=== PATIENT | female | born 1985 | race Caucasian/White ===

== ENCOUNTER 2019-02-24 13:23 | Emergency (ER) | payer BC, MEDICAID ==
--- NOTE | 2019-02-24 13:51 | ER Document Report ---
ED Medical Screen (RME) - General Chief Complaint: Abdominal Pain Stated Complaint: WEAKNESS Time Seen by Provider: 02/24/19 13:44 Mode of Arrival: Ambulatory Information source: Patient Notes: 33-year-old female presented to ED for pinkish-brown discharge from bilateral sides on her pelvic area where she had a tubal ligation reversed on February 04. She states that she had not had any drainage until she woke up this morning with her close and bed linens soaked. She states she felt like she had a low-grade fever yesterday. Past medical history is high blood pressure hypothyroidism she had a bilateral tubal ligation and reversal and tonsillectomy. She patient does not drink smoke or use any drugs. She is having some discomfort but refused Tylenol or Motrin at this time. Blood work urine and ultrasound will be completed and she will be seen by another provider. I have greeted and performed a rapid initial assessment of this patient. A comprehensive ED assessment and evaluation of the patient, analysis of test results and completion of medical decision making process will be conducted by an additional ED providers. Dictation of this chart was performed using voice recognition software; therefore, there may be some unintended grammatical errors. TRAVEL OUTSIDE OF THE [place] IN LAST 30 DAYS: No - Related Data Allergies/Adverse Reactions: No Known Allergies Allergy (Unverified 02/24/19 13:25) Physical Exam - Vital signs Vitals: Temp Pulse Resp BP Pulse Ox 99.8 F 85 18 135/96 H 100 02/24/19 13:29 02/24/19 13:29 02/24/19 13:29 02/24/19 13:29 02/24/19 13:29 Course - Vital Signs Vital signs: Temp Pulse Resp BP Pulse Ox 99.8 F 85 18 135/96 H 100 02/24/19 13:29 02/24/19 13:29 02/24/19 13:29 02/24/19 13:29 02/24/19 13:29
[2019-02-24 14:33] LABS: ABSOLUTE EOSINOPHILS # (AUTO) 0.1 10^3/uL (0.0-0.6); ABSOLUTE MONOCYTES (AUTO) 0.7 10^3/uL (0.1-1.4); ABSOLUTE NEUT (AUTO) 4.6 10^3/uL (1.7-8.2); BASOPHILS % (AUTO) 0.7 % (0-2); EOSINOPHILS % (AUTO) 1.1 % (0-6); HEMATOCRIT 32.4 % (36.0-47.0); HEMOGLOBIN 10.9 g/dL (12.0-15.5); LYMPHOCYTES % (AUTO) 15.6 % (13-45); MEAN CORPUSCULAR HEMOGLOBIN 30.1 pg (27.0-33.4); MEAN CORPUSCULAR HGB CONC 33.6 g/dL (32.0-36.0); MEAN CORPUSCULAR VOLUME 90 fl (80-97); MONOCYTES % (AUTO) 10.2 % (3-13); PLATELET COUNT 524 10^3/uL (150-450); RED BLOOD COUNT 3.62 10^6/uL (3.72-5.28); RED CELL DISTRIBUTION WIDTH 14.1 % (11.5-14.0); SEGMENTED NEUTROPHILS % (AUTO) 72.4 % (42-78); TOTAL CELLS COUNTED % (AUTO) 100 %; WHITE BLOOD COUNT 6.4 10^3/uL (4.0-10.5)
[2019-02-24 14:34] LABS: APPEARANCE,URINE SLIGHTLY-CLOUDY; BILIRUBIN,URINE NEGATIVE (NEGATIVE); COLOR,URINE YELLOW; GLUCOSE, URINE NEGATIVE (NEGATIVE); KETONES,URINE NEGATIVE (NEGATIVE); LEUKOCYTE ESTERASE,URINE NEGATIVE (NEGATIVE); NITRITE,URINE NEGATIVE (NEGATIVE); PROTEIN,URINE NEGATIVE (NEGATIVE); URINE SPECIFIC GRAVITY 1.011; UROBILINOGEN,URINE NEGATIVE mg/dL (<2.0)
[2019-02-24 14:51] LABS: ALANINE AMINOTRANSFERASE 28 U/L (9-52); ALBUMIN 3.8 g/dL (3.5-5.0); ALKALINE PHOSPHATASE 87 U/L (38-126); ANION GAP 8 (5-19); ASPARTATE AMINO TRANSFERASE 16 U/L (14-36); BILIRUBIN,DIRECT 0.2 mg/dL (0.0-0.4); BILIRUBIN,TOTAL 0.8 mg/dL (0.2-1.3); BLOOD UREA NITROGEN 9 mg/dL (7-20); CALCIUM 9.4 mg/dL (8.4-10.2); CARBON DIOXIDE 31 mmol/L (22-30); CHLORIDE 99 mmol/L (98-107); GLUCOSE 91 mg/dL (75-110); POTASSIUM 4.3 mmol/L (3.6-5.0); SODIUM 137.6 mmol/L (137-145); TOTAL PROTEIN 6.9 g/dL (6.3-8.2)
--- NOTE | 2019-02-24 17:13 | ER Document Report ---
ED General - General Chief Complaint: Abdominal Pain Stated Complaint: WEAKNESS Time Seen by Provider: 02/24/19 13:44 Mode of Arrival: Ambulatory Information source: Patient Notes: Patient presents emergency department with complaints of leaking from her BTL reversal site. Reports she had the surgery done February 04 in [facility]. She returned there last week for recheck. Everything was good but this morning she woke up with her pajama pants wet. Reports she felt a little warm yesterday. No other complaints such as fever vomiting diarrhea. TRAVEL OUTSIDE OF THE [place] IN LAST 30 DAYS: No - HPI Onset: This morning Severity: Moderate Pain Level: 3 Associated symptoms: None Exacerbated by: Movement Relieved by: Denies Similar symptoms previously: No Recently seen / treated by doctor: No - Related Data Allergies/Adverse Reactions: No Known Allergies Allergy (Unverified 02/24/19 13:25) Past Medical History - General Information source: Patient - Social History Smoking Status: Never Smoker Chew tobacco use (# tins/day): No Frequency of alcohol use: None Drug Abuse: None Lives with: Family Family History: None Patient has suicidal ideation: No Patient has homicidal ideation: No - Past Medical History Cardiac Medical History: Reports: Hx Hypertension Renal/ Medical History: Denies: Hx Peritoneal Dialysis Past Surgical History: Reports: Hx Tonsillectomy, Hx Tubal Ligation Review of Systems - Review of Systems Notes: Review HPI for review of systems., All other systems negative Physical Exam - Vital signs Vitals: Temp Pulse Resp BP Pulse Ox 99.8 F 85 18 135/96 H 100 02/24/19 13:29 02/24/19 13:29 02/24/19 13:29 02/24/19 13:29 02/24/19 13:29 - Notes Notes: PHYSICAL EXAMINATION: GENERAL: Well-appearing and in no acute distress HEAD: Atraumatic, normocephalic. EYES: Pupils equal round and reactive to light, extraocular movements intact, sclera anicteric, conjunctiva are normal. ENT: nares patent, oropharynx clear without exudates. Moist mucous membranes. NECK: Normal range of motion, supple without lymphadenopathy LUNGS: CTAB and equal. No wheezes rales or rhonchi. HEART: Regular rate and rhythm without murmurs ABDOMEN: Soft, no tenderness. No guarding, no rebound EXTREMITIES: Normal range of motion, no pitting edema. No cyanosis. NEUROLOGICAL: Cranial nerves grossly intact. Normal sensory/motor exams. PSYCH: Normal mood, normal affect. SKIN: Warm, Dry, normal turgor, no rashes or lesions noted Course - Vital Signs Vital signs: Temp Pulse Resp BP Pulse Ox 99.8 F 85 18 135/96 H 100 02/24/19 13:29 02/24/19 13:29 02/24/19 13:29 02/24/19 13:29 02/24/19 13:29 - Laboratory Result Diagrams: 02/24/19 14:03 02/24/19 14:03 Laboratory results interpreted by me: 02/24/19 02/24/19 14:03 14:03 RBC 3.62 L Hgb 10.9 L Hct 32.4 L RDW 14.1 H Plt Count 524 H Carbon Dioxide 31 H
--- NOTE | 2019-02-24 18:33 | RADIOLOGY REPORT (SQ) ---
EXAM DESCRIPTION: U/S NON-OB PELVIS LTD W/O DOP COMPLETED DATE/TIME: 02/24/2019 6:01 pm REASON FOR STUDY: Wound leakage, tubal ligation reversal COMPARISON: None. TECHNIQUE: Dynamic and static grayscale images acquired of the localized site of clinical concern an d recorded on PACS. Additional selected color Doppler and spectral images recorded. SITE OF CONCERN: Incision site in the soft tissues of the pelvis. LIMITATIONS: None. FINDINGS: Heterogenous loculated fluid collection in the soft tissues near the incision site in the left pelvic region. IMPRESSION: HETEROGENOUS LOCULATED FLUID COLLECTION NEAR THE INCISION SITE IN THE LEFT PELVIC REGION . MAY BE POSTOPERATIVE SEROMA ALTHOUGH INFECTIOUS ETIOLOGY CANNOT BE EXCLUDED. CT WITH CONTRAST MAY BE HELPFUL TO FURTHER EVALUATE THIS FINDING AND DETERMINE RELATIONSHIP TO OTHER PELVIC STRUCTURES. TECHNICAL DOCUMENTATION: JOB ID: [id number] [employer]- All Rights Reserved Reading location - IP/workstation name: [email or web address]
--- NOTE | 2019-02-24 19:17 | ER Document Report ---
ED Medical Screen (RME) - General Chief Complaint: Abdominal Pain Stated Complaint: WEAKNESS Time Seen by Provider: 02/24/19 13:44 Primary Care Provider: LIANNE SCHRADER NP [Primary Care Provider] - Follow up as needed Mode of Arrival: Ambulatory Information source: Patient Notes: Patient presents emergency department with complaints of leaking from her BTL reversal site. Reports she had the surgery done February 04 in [facility]. She returned there last week for recheck. Everything was good but this morning she woke up with her pajama pants wet. Reports she felt a little warm yesterday. No other complaints such as fever vomiting diarrhea. Abd wall is warm, +erythema TRAVEL OUTSIDE OF THE [place] IN LAST 30 DAYS: No - Related Data Allergies/Adverse Reactions: No Known Allergies Allergy (Unverified 02/24/19 13:25) Past Medical History - Social History Chew tobacco use (# tins/day): No Frequency of alcohol use: None Drug Abuse: None - Past Medical History Cardiac Medical History: Reports: Hx Hypertension Renal/ Medical History: Denies: Hx Peritoneal Dialysis Past Surgical History: Reports: Hx Tonsillectomy, Hx Tubal Ligation Physical Exam - Vital signs Vitals: Temp Pulse Resp BP Pulse Ox 99.8 F 85 18 135/96 H 100 02/24/19 13:29 02/24/19 13:29 02/24/19 13:29 02/24/19 13:29 02/24/19 13:29 Course - Vital Signs Vital signs: Temp Pulse Resp BP Pulse Ox 99.8 F 85 18 135/96 H 100 02/24/19 13:29 02/24/19 13:29 02/24/19 13:29 02/24/19 13:29 02/24/19 13:29 - Laboratory Result Diagrams: 02/24/19 14:03 02/24/19 14:03 Laboratory results interpreted by me: 02/24/19 02/24/19 14:03 14:03 RBC 3.62 L Hgb 10.9 L Hct 32.4 L RDW 14.1 H Plt Count 524 H Carbon Dioxide 31 H Doctor's Discharge - Discharge Referrals: LIANNE SCHRADER NP [Primary Care Provider] - Follow up as needed
--- NOTE | 2019-02-24 19:36 | RADIOLOGY REPORT (SQ) ---
EXAM DESCRIPTION: CT ABD/PELVIS WITH IV ONLY COMPLETED DATE/TIME: 02/24/2019 7:17 pm REASON FOR STUDY: pain discharge from surgical site COMPARISON: None. TECHNIQUE: CT scan of the abdomen and pelvis performed using helical scanning technique with dynamic intravenous contrast injection. No oral contrast. Images reviewed with lung, soft tissue, and bone windows. Reconstructed coronal and sagittal MPR images reviewed. Delayed images for evaluation of the urinary system also acquired. All images stored on PACS. All CT scanners at this facility use dose modulation, iterative reconstruction, and/or weight based d osing when appropriate to reduce radiation dose to as low as reasonably achievable (ALARA). [facility]: Dose Right [facility]: CareDose [facility]: Dose Right [facility]: Teradose 4D [facility]: Zymergen CONTRAST TYPE AND DOSE: contrast/concentration: Isovue 350.00 mg/ml; Total Contrast Delivered: 100.0 ml; Total Saline Delivered: 72.0 ml RENAL FUNCTION: BUN 9 creatinine 0.53. RADIATION DOSE: CT Rad equipment meets quality standard of care and radiation dose reduction techniq ues were employed. CTDIvol: 14.5 - 17.1 mGy. DLP: 1852 mGy-cm.. LIMITATIONS: None. FINDINGS: LOWER CHEST: No significant findings. No nodules or infiltrates. LIVER: Normal size. No masses. No dilated ducts. SPLEEN: Normal size. No focal lesions. PANCREAS: No masses. No significant calcifications. No adjacent inflammation or peripancreatic fluid collections. Pancreatic duct not dilated. GALLBLADDER: No identified stones by CT criteria. No inflammatory changes to suggest cholecystitis. ADRENAL GLANDS: No significant masses or asymmetry. RIGHT KIDNEY AND URETER: No solid masses. No significant calcifications. No hydronephrosis or hyd roureter. LEFT KIDNEY AND URETER: No solid masses. No significant calcifications. No hydronephrosis or hydr oureter. AORTA AND VESSELS: No aneurysm. No dissection. Renal arteries, SMA, celiac without stenosis. RETROPERITONEUM: No retroperitoneal adenopathy, hemorrhage or masses. BOWEL AND PERITONEAL CAVITY: No masses or inflammatory changes. No free fluid or peritoneal masses. APPENDIX: Normal. PELVIS: No mass. No free fluid. Normal bladder. ABDOMINAL WALL: There is a complex fluid collection located in the rectus musculature of the lower ab domen just above the pubic symphysis. This measures 6 cm in thickness, 10 cm in width, and 7.5 cm cr aniocaudal. There is another separate fluid collection located in the musculature anterior to the re ctus fluid collection. AP measurement is 3 cm, transverse measurement 16 cm, and craniocaudal measur ement 7 cm. Difficult to determine if the fluid collections are separate or communicate with each ot her. BONES: No significant or acute findings. OTHER: No other significant finding. IMPRESSION: 1. COMPLEX FLUID COLLECTIONS IN THE LOWER ANTERIOR ABDOMINAL WALL DESCRIBED ABOVE. DIFFERENTIAL I NCLUDES POSTOPERATIVE SEROMA VERSUS ABSCESS. 2. NO OTHER SIGNIFICANT OR ACUTE FINDING IN THE ABDOMEN OR PELVIS ON CT SCAN WITH IV CONTRAST. TECHNICAL DOCUMENTATION: JOB ID: [id number] Quality ID # [id number]: Final reports with documentation of one or more dose reduction techniques (e.g., Au tomated exposure control, adjustment of the mA and/or kV according to patient size, use of iterative reconstruction technique) 2010 [employer]- All Rights Reserved Reading location - IP/workstation name: [email or web address]
--- NOTE | 2019-02-24 20:38 | ER Document Report ---
ED General - General Chief Complaint: Abdominal Pain Stated Complaint: WEAKNESS Time Seen by Provider: 02/24/19 13:44 Primary Care Provider: LIANNE SCHRADER NP [Primary Care Provider] - Follow up as needed Mode of Arrival: Ambulatory Notes: Patient is a 33-year-old female 3 weeks status post BTL reversal who presents with concerns of serous drainage from the left breast portion of her low transverse incisional line. She notes that she has had a moderate to severe quantity of drainage from the area that is a clear, yellowish color. Symptoms started abruptly, have been worsening since onset. Nothing improves or worsen symptoms. Contacted the on-call physician through the group that performed the surgery but has not yet to hear back. Has not had fever or constitutional symptoms. TRAVEL OUTSIDE OF THE [place] IN LAST 30 DAYS: No - Related Data Allergies/Adverse Reactions: No Known Allergies Allergy (Unverified 02/24/19 13:25) Past Medical History - General Information source: Patient - Social History Smoking Status: Never Smoker Chew tobacco use (# tins/day): No Frequency of alcohol use: None Drug Abuse: None Lives with: Spouse/Significant other Family History: Reviewed & Not Pertinent Patient has suicidal ideation: No Patient has homicidal ideation: No - Past Medical History Cardiac Medical History: Reports: Hx Hypertension Renal/ Medical History: Denies: Hx Peritoneal Dialysis Past Surgical History: Reports: Hx Tonsillectomy, Hx Tubal Ligation Review of Systems - Review of Systems Notes: Constitutional: Negative for fever. HENT: Negative for sore throat. Eyes: Negative for visual changes. Cardiovascular: Negative for chest pain. Respiratory: Negative for shortness of breath. Gastrointestinal: Negative for abdominal pain, vomiting or diarrhea. Genitourinary: Negative for dysuria. Musculoskeletal: Negative for back pain. Skin: Positive for surgical wound drainage Neurological: Negative for headaches, weakness or numbness. 10 point ROS negative except as marked above and in HPI. Physical Exam - Vital signs Vitals: Temp Pulse Resp BP Pulse Ox 99.8 F 85 18 135/96 H 100 02/24/19 13:29 02/24/19 13:29 02/24/19 13:29 02/24/19 13:29 02/24/19 13:29 Interpretation: Normal Notes: PHYSICAL EXAMINATION: GENERAL: Well-appearing, well-nourished and in no acute distress. HEAD: Atraumatic, normocephalic. EYES: Pupils equal round and reactive to light, extraocular movements intact, sclera anicteric, conjunctiva are normal. ENT: nares patent, oropharynx clear without exudates. Moist mucous membranes. NECK: Normal range of motion, supple without lymphadenopathy LUNGS: Breath sounds clear to auscultation bilaterally and equal. No wheezes rales or rhonchi. HEART: Regular rate and rhythm without murmurs ABDOMEN: Soft, nontender, normoactive bowel sounds. No guarding, no rebound. No masses appreciated. EXTREMITIES: Normal range of motion, no pitting or edema. No cyanosis. NEUROLOGICAL: No focal neurological deficits. Moves all extremities spontaneously and on command. PSYCH: Normal mood, normal affect. SKIN: Warm, Dry, normal turgor, there is a well-healing low transverse incisional line with a small opening in the left most lateral portion of the wound draining serous fluid Course - Re-evaluation Re-evalutation: 02/24/19 20:37 Patient presents with increasing serous drainage from a low transverse abdominal incision from a BTL reversal. Labs unremarkable, abdominal exam is very benign without any areas of focal tenderness, rebound or guarding. There is a scant amount of serous drainage leaking from the left most lateral portion of the incisional wound. No surrounding erythema. CT scan of the abdomen pelvis obtained prior to my assessment does demonstrate a fluid collection below the incisional line. I did discuss with the MANAGER TRACK on-call Dr. Nash. We did review labs and CT report. He advises that this is a postoperative seroma, would not perform incision and drainage or start antibiotics at this time. I have advised that need patient needs to follow-up with her surgeon at her earliest ability. At this time will discharge with return precautions and follow-up recommendations. Verbal discharge instructions given a the bedside and opportunity for questions given. Medication warnings reviewed. Patient is in agreement with this plan and has verbalized understanding of return precautions and the need for primary care follow-up in the next 24-72 hours. - Vital Signs Vital signs: Temp Pulse Resp BP Pulse Ox 98.5 F 75 18 132/70 H 100 02/24/19 21:00 02/24/19 21:00 02/24/19 21:00 02/24/19 21:00 02/24/19 21:00 - Laboratory Result Diagrams: 05/13/19 14:03 02/24/19 14:03 Laboratory results interpreted by me: 02/24/19 02/24/19 14:03 14:03 RBC 3.62 L Hgb 10.9 L Hct 32.4 L RDW 14.1 H Plt Count 524 H Carbon Dioxide 31 H - Diagnostic Test Radiology reviewed: Reports reviewed Discharge - Discharge Clinical Impression: Wound drainage Postoperative seroma Qualifiers: Surgical complication system/body Area: subcutaneous tissue Procedure type: non-dermatologic Qualified Code(s): L76.34 - Postprocedural seroma of skin and subcutaneous tissue following other procedure Condition: Good Disposition: HOME, SELF-CARE Additional Instructions: Your CT scan shows what appears to be a postoperative seroma which is a noninfected fluid collection underneath your incision. I did discuss with Dr. Nash our MANAGER TRACK on-call who advised against antibiotics or any opening of the wound at this time. He has advised that you follow-up with your surgeon regarding today's visit. I have included your CT scan report and labs in your paperwork. Please return if you develop a fever greater than 100.4 F, increasing pain to the area, you develop bloody drainage, or you have any other symptoms that are worrisome to you. Forms: Return to Work Referrals: LIANNE SCHRADER, BRANDYN [Primary Care Provider] - Follow up as needed
[2019-02-24 21:01] VITALS: BP 132/70
== END 2019-02-24 21:01 | disposition home or self-care (01) ==
LOC: ER 13:23
DX: L76.34 Postprocedural seroma of skin and subcutaneous tissue following other procedure (principal); Y83.8 Other surgical procedures as the cause of abnormal reaction of the patient, or of later complication, without mention of misadventure at the time of the procedure; I10 Essential (primary) hypertension
CPT/HCPCS: 36415; 74177; 76857; 80053; 81001; 84703; 85025; 99283

== ENCOUNTER → 2020-03-16 | Outpatient (CLI) | payer BC, OTHER ==
--- NOTE | 2020-03-16 14:56 | RADIOLOGY REPORT (SQ) ---
EXAM DESCRIPTION: HYSTEROSALPINGOGRAM; HYSTERO CATH/INJECTION IMAGES COMPLETED DATE/TIME: 03/16/2020 2:03 pm REASON FOR STUDY: AFTERCARE FOLLOWING STERILIZATION REVERSAL (Z31.42) Z31.[address] ERILIZATION REVERSAL COMPARISON: None. PROCEDURE: PRE-PROCEDURE: Procedure was explained to the patient. She was told to expect cramping du ring the procedure, and possible spotting post procedure. PROCEDURE: The cervix was prepped in sterile fashion. Under direct visual inspection, the cervix was cannulated with the hysterosalpingogram catheter and contrast injected. TECHNIQUE: Temporal fluoroscopic images acquired during the procedure stored to PACS. FLUOROSCOPY TIME: 24 seconds. 11 images saved to PACS. LIMITATIONS: None. FINDINGS: UTERUS: No identified anomalies. No synechia. RIGHT ADNEXA: Normal size fallopian tube. Free spill of contrast into the peritoneal cavity. LEFT ADNEXA: Normal size fallopian tube. Distal dilation and blunting. No free spill of contrast in to the peritoneal cavity. POST PROCEDURE: The patient tolerated the procedure with no adverse effects. IMPRESSION: PATENT RIGHT FALLOPIAN TUBE. OCCLUDED LEFT FALLOPIAN TUBE. COMMENT: Study performed by and interpreted by the radiologist. Quality ID [id number]: Final reports for procedures using fluoroscopy that document radiation exposure carmen ariela, or exposure time and number of fluorographic images (if radiation exposure indices are not avail able) TECHNICAL DOCUMENTATION: JOB ID: [id number] 2010 [employer]- All Rights Reserved Reading location - IP/workstation name: [email or web address]
== END ==
LOC: RAD 12:38
PROVIDERS: ATTEND Student in an Organized Health Care Education/Training Program
DX: N97.1 Female infertility of tubal origin (principal)
CPT/HCPCS: 58340; 74740